=== PATIENT | female | born 1940 | race Caucasian/White ===

== ENCOUNTER 2022-03-13 15:00 | Inpatient (IN) | payer MEDICARE, OTHER ==
[~2022-03-13] VITALS: Ht 165.1 cm; Wt 72.6 kg
[2022-03-13] MEDS ORDERED: IV NORMAL SALINE 1000 ML BAG IV ONE (16:45)
[2022-03-13 17:28] LABS: HEMATOCRIT 47.7 % (31.2-41.9); MEAN CORPUSCULAR HEMOGLOBIN 31.5 uug (24.7-32.8); MEAN CORPUSCULAR VOLUME 93.7 fL (75.5-95.3); PLATELET COUNT (AUTO) 193 K/uL (179-408)
[2022-03-13 17:51] LABS: CARBON DIOXIDE 24 mmol/L (21-32); CHLORIDE 103 mmol/L (98-107); CREATININE 1.2 mg/dL (0.6-1.3); GLUCOSE 107 mg/dL (74-106); POTASSIUM 3.7 mmol/L (3.5-5.1); UREA NITROGEN, BLOOD 16 mg/dL (7-18)
[2022-03-13 18:04] LABS: ALANINE AMINOTRANSFERASE 34 U/L (14-59); ALKALINE PHOSPHATASE 67 U/L (50-136); ASPARTATE AMINOTRANSFERASE 26 U/L (15-37); BILIRUBIN,DIRECT 0.2 mg/dL (0.0-0.2); BILIRUBIN,TOTAL 0.4 mg/dL (0.2-1.0); TOTAL PROTEIN, SERUM 6.6 g/dL (6.4-8.2)
[2022-03-13] MEDS ORDERED: METOPROLOL TARTRATE 5 MG/5 ML VIAL IVP PRN (19:00)
[2022-03-13] MEDS ORDERED: ONDANSETRON 4 MG/2 ML VIAL IV PRN (22:45)
[2022-03-13] MEDS ORDERED: MAGNESIUM HYDROXIDE 30 ML LIQUID UDC PO PRN (22:45)
[2022-03-13] MEDS ORDERED: APIXABAN 5 MG TABLET PO SCH (22:45)
[2022-03-13] MEDS ORDERED: ACETAMINOPHEN 325 MG TABLET PO PRN (22:45)
[2022-03-13] MEDS ORDERED: ZOLPIDEM 5 MG TABLET PO PRN (22:45)
[2022-03-13] MEDS ORDERED: REMEDY ESSENTIAL ZINC PASTE 113 GM TP PRN (22:45)
[2022-03-13] MEDS ORDERED: IV NS 1000 ML 1,000 ML IV ONE (22:45)
--- NOTE | 2022-03-14 00:33 | NUR ---
Patient does not wish to proceed with medical care recommended by Dr. Guillermo. Patient given information related to possible complications, up to and including , which could occur as a result of leaving the hospital at this time. Patient and patient's daughter verbalizes understanding of risks involved due to leaving against medical advice. Patient's daughter has signed AMA form.
== END 2022-03-14 | disposition left against medical advice (07) | DRG 179 ==
LOC: ER 15:00 → TELE3 22:23
PROVIDERS: ADMIT Nurse Practitioner Acute Care; ATTEND Nurse Practitioner Acute Care
DX: U07.1 COVID-19 (principal); E86.0 Dehydration; I48.0 Paroxysmal atrial fibrillation; J45.909 Unspecified asthma, uncomplicated; R62.7 Adult failure to thrive; Z88.0 Allergy status to penicillin; Z87.440 Personal history of urinary (tract) infections; R53.1 Weakness; Z74.09 Other reduced mobility; Z79.01 Long term (current) use of anticoagulants; Z68.26 Body mass index [BMI] 26.0-26.9, adult
CPT/HCPCS: 36415; 71045; 83605; 84484; 85025; 87040; 87400; 93005; G0378; U0003